=== PATIENT | male | born 1995 | race Caucasian/White ===

== ENCOUNTER 2016-11-15 17:47 | Emergency (ER) | payer MEDICAID ==
[~2016-11-15] VITALS: Ht 177.8 cm; Wt 63.5 kg
[2016-11-15] MEDS ORDERED: ACETAMINOPHEN/CODEINE#3 (300/30mg) TAB PO ONE (21:30)
[2016-11-15 21:37] VITALS: BP 125/90
== END 2016-11-15 22:02 | disposition home or self-care (01) ==
LOC: ER 18:04
DX: S82.301A Unspecified fracture of lower end of right tibia, initial encounter for closed fracture (principal); W18.39XA Other fall on same level, initial encounter; Y93.89 Activity, other specified; Y99.8 Other external cause status; Y92.89 Other specified places as the place of occurrence of the external cause
CPT/HCPCS: 29515; 73610

== ENCOUNTER 2017-04-08 16:36 | Emergency (ER) | payer MEDICAID ==
[~2017-04-08] VITALS: Ht 182.9 cm; Wt 65.8 kg
[2017-04-08 17:07] VITALS: BP 136/78
[2017-04-08] MEDS ORDERED: fentaNYL CITRATE 100 MCG/2 ML VL IV ONE (17:30)
[2017-04-08] MEDS ORDERED: MIDAZOLAM HCL 5 MG/ML-1ML VIAL IV ONE (17:30)
== END 2017-04-08 18:59 | disposition home or self-care (01) ==
LOC: ER 16:36 → EDBD 16:36 → ER 18:59
DX: S43.014A Anterior dislocation of right humerus, initial encounter (principal); X58.XXXA Exposure to other specified factors, initial encounter; Y93.89 Activity, other specified; Y92.89 Other specified places as the place of occurrence of the external cause; Y99.8 Other external cause status
CPT/HCPCS: 23650; 73030; 99152; 99285; J2250; J3010; 96374

== ENCOUNTER 2018-05-21 18:22 | Emergency (ER) | payer MEDICAID ==
[~2018-05-21] VITALS: Ht 175.3 cm; Wt 83.5 kg
[2018-05-21] MEDS ORDERED: fentaNYL CITRATE 100 MCG/2 ML VL IV ONE ×2 (20:30)
[2018-05-21] MEDS ORDERED: SODIUM CHLORIDE 0.9% 1,000 ML IV ONE (20:30)
[2018-05-21] MEDS ORDERED: ETOMIDATE (2MG/ML) 20ML VIAL IV ONE ×3 (20:30→20:45)
[2018-05-21] MEDS ORDERED: PROPOFOL 100 ML IV ONE (21:15)
[2018-05-21] MEDS ORDERED: PROPOFOL 10 MG/ML 20 ML IV ONE ×2 (21:30→21:45)
[2018-05-21 22:30] VITALS: BP 131/72
== END 2018-05-21 22:29 | disposition home or self-care (01) ==
LOC: ER 18:22
DX: S43.004A Unspecified dislocation of right shoulder joint, initial encounter (principal); X58.XXXA Exposure to other specified factors, initial encounter; Y93.89 Activity, other specified; Y92.89 Other specified places as the place of occurrence of the external cause; Y99.8 Other external cause status
CPT/HCPCS: 23650; 73020; 73030; 99152; 99285; J2704; J3010; 96374; 96375

== ENCOUNTER 2019-06-03 20:34 | Emergency (ER) | payer MEDICAID ==
[~2019-06-03] VITALS: Ht 182.9 cm; Wt 72.6 kg
[2019-06-04 01:12] VITALS: BP 144/88
== END 2019-06-04 01:32 | disposition home or self-care (01) ==
LOC: ER 20:38
DX: S01.312A Laceration without foreign body of left ear, initial encounter (principal); W22.8XXA Striking against or struck by other objects, initial encounter; Y93.89 Activity, other specified; Y92.89 Other specified places as the place of occurrence of the external cause; Y99.8 Other external cause status
CPT/HCPCS: 12011